=== PATIENT | female | born 1995 | race Two or more races ===

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

== ENCOUNTER 2017-05-13 13:19 | Emergency (ER) | END 2017-05-13 16:53 | disposition home or self-care (01) ==

== ENCOUNTER 2018-05-24 17:55 | Emergency (ER) | payer OTHER ==
[~2018-05-24] VITALS: Wt 57.8 kg
[~2018-05-24 17:55] MED LIST: IBUP-1542 PO; ORPH100T PO
[2018-05-24] MEDS ORDERED: ONDANSETRON (ODT) 4 MG TAB ODT STA (18:54)
[2018-05-24] MEDS ORDERED: FAMOTIDINE 20 MG TAB PO ONE (19:00)
[2018-05-24] MEDS ORDERED: LIDOCAINE/MYLANTA 40 ML BTL PO ONE (19:00)
[2018-05-24] MEDS ORDERED: ONDA8TAB14 PO (20:55)
[2018-05-24] MEDS ORDERED: OMEP20CA16 PO (20:55)
[2018-05-24] MEDS ORDERED: FAMO20TA18 PO (20:55)
[2018-05-24 21:12] VITALS: BP 113/72; PULSE 83; RESP 18
--- NOTE | 2018-05-25 00:33 | ERD ---
ER Documentation Chief Complaint Chief Complaint mid-AP; NV x3d. denies dysuria. worse w food/ water/ movement. HPI 22-year-old female presents the emergency department complaining of moderate, nonradiating epigastric abdominal pain, nausea nonbilious nonbloody vomiting for the past 3 days. Patient denies fevers, denies dysuria, diarrhea, history of abdominal surgeries. Patient states the pain is worse with food ROS All systems reviewed and are negative except as per history of present illness. Medications Home Meds Active Scripts Ondansetron (Ondansetron Odt) 8 Mg Tab.rapdis, 8 MG PO Q6H PRN for NAUSEA AND/OR VOMITING, #30 TAB Prov:NALLELY MUELLER PA-C 05/24/18 Famotidine* (Famotidine*) 20 Mg Tablet, 20 MG PO QHS, #30 TAB Prov:NALLELY MUELLER PA-C 05/24/18 Omeprazole* (Omeprazole*) 20 Mg Capsule.dr, 20 MG PO DAILY, #14 Prov:NALLELY MUELLER PA-C 05/24/18 Orphenadrine Citrate (Norflex) 100 Mg Tablet.sa, 100 MG PO BID for 7 Days, TAB.SA Prov:ANNI KAHN 05/13/17 Ibuprofen* (Motrin*) 600 Mg Tab, 600 MG PO Q6, #30 TAB Prov:ANNI KAHN 05/13/17 Allergies Allergies: Coded Allergies: No Known Allergy (Unverified , 04/23/13) PMhx/Soc History of Surgery: No Anesthesia Reaction: No Hx Neurological Disorder: No Hx Respiratory Disorders: No Hx Cardiac Disorders: No Hx Psychiatric Problems: No Hx Miscellaneous Medical Probl: No Hx Alcohol Use: No Hx Substance Use: No Hx Tobacco Use: No Smoking Status: Never smoker Physical Exam Vitals Vital Signs Date Temp Pulse Resp B/P (MAP) Pulse Ox O2 O2 Flow FiO2 Time Delivery Rate 05/24/18 99.0 83 18 113/72 96 Room Air 21:12 (86) 05/24/18 99.9 79 18 158/68 99 18:08 (98) Physical Exam Const: No acute distress Head: Atraumatic Eyes: Normal Conjunctiva ENT: Normal External Ears, Nose and Mouth. Neck: Full range of motion. No meningismus. Resp: Clear to auscultation bilaterally Cardio: Regular rate and rhythm, no murmurs Abd: Soft,TTP epigastric, non distended. Normal bowel sounds Skin: No petechiae or rashes Back: No midline or flank tenderness Ext: No cyanosis, or edema Neur: Awake and alert Psych: Normal Mood and Affect Result Diagram: 05/24/18191105/24/181911 Results 24 hrs Laboratory Tests Test 05/24/18 19:10 05/24/18 19:12 POC Beta HCG, Qualitative NEGATIVE White Blood Count 4.6 10^3/ul Red Blood Count 3.99 10^6/ul Hemoglobin 12.1 g/dl Hematocrit 36.8 % Mean Corpuscular Volume 92.2 fl Mean Corpuscular Hemoglobin 30.3 pg Mean Corpuscular Hemoglobin Concent 32.9 g/dl Red Cell Distribution Width 13.5 % Platelet Count 274 10^3/UL Mean Platelet Volume 11.4 fl Immature Granulocytes % 0.200 % Neutrophils % 58.3 % Lymphocytes % 30.0 % Monocytes % 10.2 % Eosinophils % 1.3 % Basophils % 0.0 % Nucleated Red Blood Cells % 0.0 /100WBC Immature Granulocytes # 0.010 10^3/ul Neutrophils # 2.7 10^3/ul Lymphocytes # 1.4 10^3/ul Monocytes # 0.5 10^3/ul Eosinophils # 0.1 10^3/ul Basophils # 0.0 10^3/ul Nucleated Red Blood Cells # 0.0 10^3/ul Urine Color YELLOW Urine Clarity CLEAR Urine pH 5.0 Urine Specific [place] 1.015 Urine Ketones NEGATIVE mg/dL Urine Nitrite NEGATIVE mg/dL Urine Bilirubin NEGATIVE mg/dL Urine Urobilinogen NEGATIVE mg/dL Urine Leukocyte Esterase NEGATIVE Chris/ul Urine Hemoglobin NEGATIVE mg/dL Urine Glucose NEGATIVE mg/dL Urine Total Protein NEGATIVE mg/dl Sodium Level 139 mmol/L Potassium Level 3.8 mmol/L Chloride Level 105 mmol/L Carbon Dioxide Level 26 mmol/L Anion Gap 8 Blood Urea Nitrogen 11 mg/dl Creatinine 0.52 mg/dl Est Glomerular Filtrat Rate mL/min > 60 mL/min Glucose Level 96 mg/dl Calcium Level 9.8 mg/dl Total Bilirubin 0.1 mg/dl Direct Bilirubin 0.00 mg/dl Indirect Bilirubin 0.1 mg/dl Aspartate Amino Transf (AST/SGOT) 32 IU/L Alanine Aminotransferase (ALT/SGPT) 30 IU/L Alkaline Phosphatase 115 IU/L Total Protein 7.9 g/dl Albumin 4.5 g/dl Globulin 3.40 g/dl Albumin/Globulin Ratio 1.32 Lipase 59 U/L Current Medications Medications Dose Sig/Twan Start Time Status Last (Trade) Ordered Route PRN Stop Time Admin Dose Reason Admin 40 ml ONCE ONCE 05/24/18 DC 05/24/18 Miscellaneous PO 19:00 19:07 Medication 05/24/18 19:01 (Gi Cocktail (2)) Ondansetron 4 mg ONCE STAT 05/24/18 DC 05/24/18 HCl (Zofran ODT 18:54 19:07 Odt) 05/24/18 18:56 Famotidine 20 mg ONCE ONCE 05/24/18 DC 05/24/18 (Pepcid) PO 19:00 19:07 05/24/18 19:01 Procedures/MDM 22-year-old female presents with epigastric abdominal pain and nausea, differentials include but not limited to gastritis/esophagitis/PUD/GERD there is no signs of acute abdominal conditions at this time. Patient was given a I cocktail and Zofran in the ED patient's pain has stabilized. She stable to be discharged home to follow-up with her primary care physician. I have given her GERD diet. Prescription for Zofran, Pepcid, Prilosec was given. Departure Diagnosis: Primary Impression: Abdominal pain Condition: Stable Patient Instructions: Abdominal Pain, Lifestyle Changes for Controlling GERD, Medications for GERD, Gerd (Adult), Gastritis (Adult) Referrals: HAO SHERMAN MD (PCP) Additional Instructions: FOLLOW UP WITH YOUR PRIMARY CARE PHYSICIAN TOMORROW.Return to this facility if you are not improving as expected. Take all medicines as directed. Return to this facility if you are not improving as expected. NALLELY MUELLER PA-C May 25, 2018 00:33
== END 2018-05-24 21:23 | disposition home or self-care (01) ==
LOC: FTE 17:55
DX: R10.13 Epigastric pain (principal); R11.2 Nausea with vomiting, unspecified
CPT/HCPCS: 36415; 76705; 80053; 81003; 81025; 83690; 85025; Z7502; Z7610